=== PATIENT | female | born 1995 | race African-American/Black ===

== ENCOUNTER 2021-06-02 10:00 | Emergency (ER) | payer MEDICAID ==
[~2021-06-02] VITALS: Ht 160 cm; Wt 104.0 kg
[2021-06-02 11:47] LABS: CLARITY URINE CLEAR (CLEAR); COLOR URINE YELLOW (YELLOW); KETONES URINE TRACE (NEGATIVE); LEUKOCYTE ESTERASE URINE NEGATIVE (NEGATIVE); NITRITE URINE NEGATIVE (NEGATIVE); OCCULT BLOOD URINE NEGATIVE (NEGATIVE); PH URINE 5.5 (4.5-8.0); PROTEIN URINE TRACE (NEGATIVE); SPECIFIC GRAVITY URINE 1.027 (1.005-1.030)
[2021-06-02 12:18] VITALS: BP 154/82
== END 2021-06-02 12:31 | disposition left against medical advice (07) ==
LOC: ER 10:00
DX: O26.891 Other specified pregnancy related conditions, first trimester (principal); O20.0 Threatened abortion; J45.909 Unspecified asthma, uncomplicated; Z3A.01 Less than 8 weeks gestation of pregnancy
CPT/HCPCS: 76801; 81003; 81025; 99284